=== PATIENT | male | born 1950 ===

== ENCOUNTER 2018-05-19 15:16 | Outpatient (CLI) | payer OTHER ==
[~2018-05-19] VITALS: Ht 177.8 cm; Wt 106.1 kg
== END 2018-05-19 15:30 | disposition home or self-care (01) ==
LOC: OFIC 805 15:16
DX: H61.23 Impacted cerumen, bilateral (principal); H90.3 Sensorineural hearing loss, bilateral

== ENCOUNTER 2018-06-02 10:19 | Outpatient (CLI) | payer OTHER | END 2018-06-02 10:35 | disposition home or self-care (01) | LOC: OFIC 805 10:19 | DX: H61.23 Impacted cerumen, bilateral (principal); H91.90 Unspecified hearing loss, unspecified ear ==

== ENCOUNTER 2018-09-29 08:05 | Outpatient (CLI) | payer OTHER ==
[~2018-09-29] VITALS: Ht 152.4 cm; Wt 104.3 kg
== END 2018-09-29 08:20 | disposition home or self-care (01) ==
LOC: OFIC 805 08:05
DX: H61.23 Impacted cerumen, bilateral (principal); H90.3 Sensorineural hearing loss, bilateral